=== PATIENT | female | born 1985 | race Caucasian/White ===

== ENCOUNTER 2016-07-09 20:01 | Emergency (ER) | payer OTHER ==
[~2016-07-09] VITALS: Ht 142.2 cm; Wt 47.2 kg
[~2016-07-09 20:01] MED LIST: TRAM50TA PO
[2016-07-09 20:04] VITALS: BP 99/77; PULSE 79; RESP 17; TEMP 98.4; O2SAT 100
[2016-07-09 20:24] LABS: BLOOD, URINE SMALL (NEG); GLUCOSE,URINE NEG (NEG); KETONE, URINE NEG (NEG); NITRITE,URINE NEG (NEG)
[2016-07-09 20:30] LABS: URINE COLOR YELLOW (YELLW/STRAW); WBC, URINE 0-2 /hpf (0-5)
[2016-07-09 20:31] LABS: BACTERIA, URINE OCC /hpf; COMMENT (UR) CULT NOT INDICATED; CULTURE IF INDICATED CULT NOT INDICATED; SQUAMOUS EPITHELIAL CELL URINE 0-5 /hpf (0-5)
[2016-07-09] MEDS ORDERED: SODIUM CHLOR 0.9% 1000 ML INJ 1,000 ML IV SCH (21:39)
[2016-07-09] MEDS ORDERED: SODIUM CHLORIDE 0.9% FLUSH 10 ML FLUSH IV FLUSH PRN (21:45)
[2016-07-09] MEDS ORDERED: ONDANSETRON HCL 4 MG/2 ML VIAL IVP ONE (21:45)
--- NOTE | 2016-07-09 21:45 | PD ---
HPI Chief Complaint: Abdominal Pain Time Seen by Provider: 21:39 Travel History International Travel<30 days: No Contact w/Intl Traveler<30days: No Traveled to known affect area: No History of Present Illness HPI The patient is a 31-year-old female that complains of pain in the abdomen, left upper quadrant mostly for 2-3 days. She does have nausea without vomiting. She denies any fever. She states there is no possibility of , she has an IUD in. She comes from [place] and speaks both Romanian and Kinyarwanda. She does have frequency of urination but denies any dysuria. PFSH Past Medical History Diminished Hearing: No Gastrointestinal Disorders: Yes Tetanus Vaccination: Unknown Influenza Vaccination: No ?: Unknown LMP: 06/13/16 : 2 Para: 2 Past Surgical History Section: Yes (x2) Social History Alcohol Use: No Tobacco Use: No Substance Use: No Allergies-Medications (Allergen,Severity, Reaction): Coded Allergies: No Known Allergies (Unverified , 07/09/16) Reported Meds & Prescriptions Reported Meds & Active Scripts Active No Active Prescriptions or Reported Medications Review of Systems Except as stated in HPI: all other systems reviewed are Neg Physical Exam Narrative GENERAL: The patient is alert, oriented 3 and slight apparent distress with her abdominal discomfort. Her vital signs are normal. SKIN: Focused skin assessment warm/dry. HEAD: Atraumatic. Normocephalic. EYES: Pupils equal and round. No scleral icterus. No injection or drainage. ENT: No nasal bleeding or discharge. Mucous membranes pink and moist. NECK: Trachea midline. No JVD. CARDIOVASCULAR: Regular rate and rhythm. No murmur appreciated. RESPIRATORY: No accessory muscle use. Clear to auscultation. Breath sounds equal bilaterally. GASTROINTESTINAL: Abdomen soft, with tenderness in the left upper quadrant or left leg to direct palpation. The patient also has some diffuse tenderness on other parts of her abdomen. No guarding or rebound is present. The abdomen is nondistended. Hepatic and splenic margins not palpable. MUSCULOSKELETAL: No obvious deformities. No clubbing. No cyanosis. No edema. NEUROLOGICAL: Awake and alert. No obvious cranial nerve deficits. Motor grossly within normal limits. Normal speech. PSYCHIATRIC: Appropriate mood and affect; insight and judgment normal. Data Data Last Documented VS Vital Signs Date Time Temp Pulse Resp B/P Pulse Ox O2 Delivery O2 Flow Rate FiO2 07/09/16 22:06 74 20 104/63 100 07/09/16 20:04 98.4 Orders Urinalysis - C+S If Indicated (07/09/16 20:09) Ed Urine Pregnancytest Poc (07/09/16 20:09) Complete Blood Count With Diff (07/09/16 21:39) Comprehensive Metabolic Panel (07/09/16 21:39) Lipase (07/09/16 21:39) Ct Abd/Pel W Iv Contrast(Rout) (07/09/16 21:39) Iv Access Insert/Monitor (07/09/16 21:39) Ecg Monitoring (07/09/16 21:39) Oximetry (07/09/16 21:39) Ondansetron Inj (Zofran Inj) (07/09/16 21:45) Sodium Chlor 0.9% 1000 Ml Inj (Ns 1000 M (07/09/16 21:39) Sodium Chloride 0.9% Flush (Ns Flush) (07/09/16 21:45) Ketorolac Inj (Toradol Inj) (07/09/16 23:00) Iohexol 350 Inj (Omnipaque 350 Inj) (07/09/16 23:07) Labs Laboratory Tests Test 07/09/16 07/09/16 20:10 22:00 Urine Color YELLOW Urine Turbidity CLEAR Urine pH 6.0 Urine Specific [place] 1.020 Urine Protein NEG mg/dL Urine Glucose (UA) NEG mg/dL Urine Ketones NEG mg/dL Urine Occult Blood SMALL Urine Nitrite NEG Urine Bilirubin NEG Urine Leukocyte Esterase NEG Urine RBC 10-14 /hpf Urine WBC 0-2 /hpf Urine Squamous Epithelial 0-5 /hpf Cells Urine Bacteria OCC /hpf Microscopic Urinalysis Comment CULT NOT INDICATED White Blood Count 6.8 TH/MM3 Red Blood Count 4.14 MIL/MM3 Hemoglobin 12.7 GM/DL Hematocrit 36.6 % Mean Corpuscular Volume 88.4 FL Mean Corpuscular Hemoglobin 30.8 PG Mean Corpuscular Hemoglobin 34.8 % Concent Red Cell Distribution Width 11.7 % Platelet Count 263 TH/MM3 Mean Platelet Volume 7.5 FL Neutrophils (%) (Auto) 45.4 % Lymphocytes (%) (Auto) 41.5 % Monocytes (%) (Auto) 8.6 % Eosinophils (%) (Auto) 3.7 % Basophils (%) (Auto) 0.8 % Neutrophils # (Auto) 3.0 TH/MM3 Lymphocytes # (Auto) 2.8 TH/MM3 Monocytes # (Auto) 0.6 TH/MM3 Eosinophils # (Auto) 0.3 TH/MM3 Basophils # (Auto) 0.1 TH/MM3 CBC Comment DIFF FINAL Differential Comment Sodium Level 139 MEQ/L Potassium Level 3.6 MEQ/L Chloride Level 104 MEQ/L Carbon Dioxide Level 27.9 MEQ/L Anion Gap 7 MEQ/L Blood Urea Nitrogen 10 MG/DL Creatinine 0.65 MG/DL Estimat Glomerular Filtration 107 ML/MIN Rate Random Glucose 88 MG/DL Calcium Level 8.6 MG/DL Total Bilirubin 0.2 MG/DL Aspartate Amino Transf 16 U/L (AST/SGOT) Alanine Aminotransferase 26 U/L (ALT/SGPT) Alkaline Phosphatase 41 U/L Total Protein 7.4 GM/DL Albumin 3.9 GM/DL Lipase 86 U/L MDM Medical Decision Making Medical Screen Exam Complete: Yes Emergency Medical Condition: Yes Medical Record Reviewed: Yes Interpretation(s) The urine shows small occult blood, 10-14 red cells with occasional bacteria but is otherwise normal and culture is not indicated. The urine test is negative. The CBC is normal and the complete metabolic profile is normal. The lipase is normal. The CT abdomen/pelvis with IV contrast shows a 2 cm right ovarian cyst and a 1.3 cm left ovarian cyst with a small amount of free fluid in the cul-de-sac. There is an IUD in the uterus but the exam is otherwise unremarkable. Differential Diagnosis Colitis, pancreatitis, pyelonephritis, enteritis, viral gastroenteritis, electrolyte disorder, appendicitis, urinary stone Narrative Course The patient may have a ruptured left ovarian cyst. She is slightly tender on the left. The blood work is completely normal. No evidence of ureteral stone is present. Plan: The patient be given Lortab 5 and Phenergan for pain and nausea. She should follow-up with her primary care physician. Diagnosis Primary Impression: Ruptured ovarian cyst Additional Instructions: Do not drink alcohol or drive on the Lortab 5 or the Phenergan. The Lortab 5 may cause nausea and that's why gave you Phenergan, for the nausea. I know you do not have any nausea now. Follow-up with a manager mining or your primary care physician next week. Med/Other Pt SpecificInfo: Prescription(s) given Scripts Promethazine (Phenergan)25 Mg Tab25 Mg PO Q6H PRN (Nausea/Vomiting) #20 TAB Ref 0 Prov:Girish Coronel MD 07/10/16 Hydrocodone-Acetaminophen (Lortab)5-325 Mg Tab1 Tab PO Q6H PRN (PAIN) #20 TAB Ref 0 Prov:Girish Coronel MD 07/10/16 Disposition: 01 DISCHARGE HOME Condition: Stable Girish Coronel MD July 09, 2016 21:45
[2016-07-09 22:06] VITALS: BP 104/63; PULSE 74; RESP 20; O2SAT 100
[2016-07-09 22:08] LABS: BASOPHIL # 0.1 TH/MM3 (0-0.2); BASOPHIL % 0.8 % (0.0-2.0); EOSINOPHIL # 0.3 TH/MM3 (0-0.4); EOSINOPHIL % 3.7 % (0.0-4.0); HEMATOCRIT 36.6 % (35.0-46.0); HEMO FLAGS DIFF FINAL; LYMPH % 41.5 % (9.0-44.0); LYMPHOCYTE # 2.8 TH/MM3 (1.0-4.8); MEAN CELL VOLUME 88.4 FL (80.0-100.0); MEAN CORPUSCULAR HEMOGLOBIN 30.8 PG (27.0-34.0); MEAN CORPUSCULAR HGB CONC 34.8 % (32.0-36.0); MONO % 8.6 % (0.0-8.0); NEUT % 45.4 % (16.0-70.0); PLATELET COUNT 263 TH/MM3 (150-450); RED BLOOD COUNT 4.14 MIL/MM3 (4.00-5.30); RED CELL DISTRIBUTION WIDTH 11.7 % (11.6-17.2); WHITE BLOOD COUNT 6.8 TH/MM3 (4.0-11.0)
[2016-07-09 22:24] LABS: CHLORIDE 104 MEQ/L (98-107); POTASSIUM 3.6 MEQ/L (3.5-5.1); SODIUM (NA) 139 MEQ/L (136-145)
[2016-07-09 22:28] LABS: ANION GAP 7 MEQ/L (5-15); BICARBONATE 27.9 MEQ/L (21.0-32.0); BLOOD UREA NITROGEN 10 MG/DL (7-18)
[2016-07-09 22:31] LABS: ALT (GPT) 26 U/L (10-53); AST (GOT) 16 U/L (15-37); GLOMERULAR FILTRATION RATE 107 ML/MIN (>89)
[2016-07-09 22:32] LABS: TOTAL BILIRUBIN ADULT 0.2 MG/DL (0.2-1.0)
[2016-07-09 22:34] LABS: ALKALINE PHOSPHATASE 41 U/L (45-117)
[2016-07-09] MEDS ORDERED: KETOROLAC TROMETHAMINE 60 MG/2 ML (IM) VIAL IVP ONE (23:00)
[2016-07-09] MEDS ORDERED: IOHEXOL 350 MG/ML 10 ML VIAL (for RAD DIAG) IV ONE (23:07)
--- NOTE | 2016-07-09 23:54 | RADHPO ---
EXAM DATE/TIME: 07/09/2016 22:53 [facility] COMPARISON: No previous studies available for comparison. INDICATIONS : Left lower quadrant pain. IV CONTRAST: 94 cc Omnipaque 350 (iohexol) IV ORAL CONTRAST: No oral contrast ingested. RADIATION DOSE: 4.53 CTDIvol (mGy) MEDICAL HISTORY : None SURGICAL HISTORY : section. ENCOUNTER: Initial ACUITY: 1 day PAIN SCALE: 6/10 LOCATION: Left lower quadrant TECHNIQUE: Volumetric scanning of the abdomen and pelvis was performed. Using automated exposure control and ad justment of the mA and/or kV according to patient size, radiation dose was kept as low as reasonably achievable to obtain optimal diagnostic quality images. FINDINGS: LOWER LUNGS: The visualized lower lungs are clear. LIVER: Homogeneous density without lesion. There is no dilation of the biliary tree. No calcified gallston es. SPLEEN: Normal size without lesion. PANCREAS: Within normal limits. KIDNEYS: Normal in size and shape. There is no mass, stone or hydronephrosis. ADRENAL GLANDS: Within normal limits. VASCULAR: There is no aortic aneurysm. BOWEL/MESENTERY: The stomach, small bowel, and colon demonstrate no acute abnormality. There is no free intraperitone al air or fluid. No inflammatory changes. There is stool in the colon.ABDOMINAL WALL: Within normal limits. RETROPERITONEUM: There is no lymphadenopathy. BLADDER: No wall thickening or mass. REPRODUCTIVE: There is an IUD within the uterus. There is a 2 cm left ovarian cyst. There is a 1.3 cm right ovarian cyst. There is a small amount of fluid in the cul-de-sac. INGUINAL: There is no lymphadenopathy or hernia. MUSCULOSKELETAL: Within normal limits for patient age. CONCLUSION: 1. There is a 2 cm right ovarian cyst. There is a 1.3 cm left ovarian cyst. There is a small amount o f free fluid in the cul-de-sac. 2. IUD in the uterus. 3. Otherwise, unremarkable exam for patient's age. Donato Berger MD on July 09, 2016 at 23:49 Board Certified Radiologist. This report was verified electronically.
[2016-07-10] MEDS ORDERED: HYDR-3533 PO (00:03)
[2016-07-10] MEDS ORDERED: PROM25TA5 PO (00:03)
[2016-07-10 00:18] VITALS: BP 109/63
== END 2016-07-10 00:20 | disposition home or self-care (01) ==
LOC: PHED 20:01 → MERGE 20:01 → PHED 07-10 00:20
DX: N83.11 Corpus luteum cyst of right ovary (principal); N83.12 Corpus luteum cyst of left ovary
CPT/HCPCS: 74177; 80053; 81001; 83690; 84703; 85025; 96374; 99284; J1885; J7030; Q9967

== ENCOUNTER 2016-10-21 15:34 | Emergency (ER) | payer OTHER ==
[~2016-10-21] VITALS: Ht 157.5 cm; Wt 50.0 kg
[~2016-10-21 15:34] MED LIST changes: +HYDR-3533 PO; +PROM25TA5 PO
[2016-10-21 15:40] VITALS: BP 96/84; PULSE 78; RESP 16; TEMP 98.2; O2SAT 100
[2016-10-21 16:00] VITALS: RESP 16; O2SAT 100
[2016-10-21] MEDS ORDERED: ASPIRIN 325 MG TAB PO ONE (16:00)
[2016-10-21] MEDS ORDERED: SODIUM CHLORIDE 0.9% FLUSH 10 ML FLUSH IVF PRN (16:00)
[2016-10-21] MEDS ORDERED: ASPI81CH CHEW (16:02)
[2016-10-21 16:07] LABS: AUTOMATED NEUTROPHIL # 2.6 TH/MM3 (1.8-7.7); BASOPHIL % 0.6 % (0.0-2.0); EOSINOPHIL # 0.1 TH/MM3 (0-0.4); EOSINOPHIL % 2.3 % (0.0-4.0); HEMATOCRIT 38.2 % (35.0-46.0); HEMO FLAGS DIFF FINAL; LYMPH % 46.5 % (9.0-44.0); LYMPHOCYTE # 2.8 TH/MM3 (1.0-4.8); MEAN CELL VOLUME 89.7 FL (80.0-100.0); MEAN CORPUSCULAR HEMOGLOBIN 30.3 PG (27.0-34.0); MEAN CORPUSCULAR HGB CONC 33.7 % (32.0-36.0); NEUT % 42.6 % (16.0-70.0); PLATELET COUNT 329 TH/MM3 (150-450); RED BLOOD COUNT 4.25 MIL/MM3 (4.00-5.30); RED CELL DISTRIBUTION WIDTH 12.1 % (11.6-17.2)
[2016-10-21 16:16] LABS: CHLORIDE 101 MEQ/L (98-107); POTASSIUM 3.7 MEQ/L (3.5-5.1); SODIUM (NA) 135 MEQ/L (136-145)
[2016-10-21 16:18] LABS: ANION GAP 8 MEQ/L (5-15); BICARBONATE 25.6 MEQ/L (21.0-32.0)
[2016-10-21 16:19] LABS: BLOOD UREA NITROGEN 15 MG/DL (7-18); MAGNESIUM 2.4 MG/DL (1.5-2.5)
[2016-10-21 16:22] LABS: GLOMERULAR FILTRATION RATE 120 ML/MIN (>89)
[2016-10-21 16:25] LABS: CREATINE KINASE 497 U/L (26-192)
--- NOTE | 2016-10-21 16:26 | PD ---
HPI Chief Complaint: Chest Pain Time Seen by Provider: 15:48 Travel History International Travel<30 days: No Contact w/Intl Traveler<30days: No Traveled to known affect area: No History of Present Illness HPI The patient is 31 years old. She speaks Faroese however prefers to speak Upper Sorbian or to have the undersigned provide broken translation. A patella cover marker service was offered however declined. She complains of chest pain for 2 days. Onset at rest. Location left chest. It's worse while the patient runs. There is paresthesias in the left arm. Paresthesias accompany the chest pain and at times persist after its resolution. She denies history of DVT. She has no family history of coronary artery disease. She does not smoke or use any drugs. She has no diabetes hyperlipidemia or hypertension. PFSH Past Medical History Diminished Hearing: No Gastrointestinal Disorders: Yes (GASTROPARESIS) Influenza Vaccination: No ?: Not LMP: IUD : 2 Para: 2 Past Surgical History Section: Yes (x2) Gynecologic Surgery: Yes (EXPLORATORY LAP. 2 C-SECT) Other Surgery: Yes (BREAST IMPLANTS) Social History Alcohol Use: No Tobacco Use: No Substance Use: No Allergies-Medications (Allergen,Severity, Reaction): Coded Allergies: No Known Allergies (Unverified , 10/21/16) Reported Meds & Prescriptions Reported Meds & Active Scripts Active Reported Aspirin 81 Mg Chew 81 Mg CHEW ONCE Physical Exam Narrative GENERAL: 31-year-old female pleasant well-nourished well-developed no acute distress SKIN: Focused skin assessment warm/dry. HEAD: Atraumatic. Normocephalic. EYES: Pupils equal and round. No scleral icterus. No injection or drainage. ENT: No nasal bleeding or discharge. Mucous membranes pink and moist. NECK: Trachea midline. No JVD. CARDIOVASCULAR: Regular rate and rhythm. No murmur appreciated. RESPIRATORY: No accessory muscle use. Clear to auscultation. Breath sounds equal bilaterally. GASTROINTESTINAL: Abdomen soft, non-tender, nondistended. Hepatic and splenic margins not palpable. MUSCULOSKELETAL: No obvious deformities. No clubbing. No cyanosis. No edema. No sign DVT. NEUROLOGICAL: Awake and alert. No obvious cranial nerve deficits. Motor grossly within normal limits. Normal speech. PSYCHIATRIC: Appropriate mood and affect; insight and judgment normal. Data Data Last Documented VS Vital Signs Date Time Temp Pulse Resp B/P (MAP) Pulse Ox O2 Delivery O2 Flow Rate FiO2 10/21/16 17:33 10/21/16 17:27 81 16 99 Room Air 10/21/16 15:40 98.2 Vital signs reviewed Orders Orders Electrocardiogram (10/21/16 15:49) Basic Metabolic Panel (Bmp) (10/21/16 15:49) Ckmb (Isoenzyme) Profile (10/21/16 15:49) Complete Blood Count With Diff (10/21/16 15:49) D-Dimer (10/21/16 15:49) Magnesium (Mg) (10/21/16 15:49) Troponin I (10/21/16 15:49) Chest, Single Ap (10/21/16 15:49) Ecg Monitoring (10/21/16 15:49) Iv Access Insert/Monitor (10/21/16 15:49) Oximetry (10/21/16 15:49) Oxygen Administration (10/21/16 15:49) Aspirin (Aspirin) (10/21/16 16:00) Sodium Chloride 0.9% Flush (Ns Flush) (10/21/16 16:00) CKMB (10/21/16 15:55) CKMB% (10/21/16 15:55) Labs Laboratory Tests Test 10/21/16 15:55 White Blood Count 6.0 TH/MM3 Red Blood Count 4.25 MIL/MM3 Hemoglobin 12.9 GM/DL Hematocrit 38.2 % Mean Corpuscular Volume 89.7 FL Mean Corpuscular Hemoglobin 30.3 PG Mean Corpuscular Hemoglobin Concent 33.7 % Red Cell Distribution Width 12.1 % Platelet Count 329 TH/MM3 Mean Platelet Volume 7.6 FL Neutrophils (%) (Auto) 42.6 % Lymphocytes (%) (Auto) 46.5 % Monocytes (%) (Auto) 8.0 % Eosinophils (%) (Auto) 2.3 % Basophils (%) (Auto) 0.6 % Neutrophils # (Auto) 2.6 TH/MM3 Lymphocytes # (Auto) 2.8 TH/MM3 Monocytes # (Auto) 0.5 TH/MM3 Eosinophils # (Auto) 0.1 TH/MM3 Basophils # (Auto) 0.0 TH/MM3 CBC Comment DIFF FINAL Differential Comment D-Dimer Quantitative (PE/DVT) LESS THAN 0.19 MG/L FEU Blood Urea Nitrogen 15 MG/DL Creatinine 0.59 MG/DL Random Glucose 87 MG/DL Calcium Level 9.4 MG/DL Magnesium Level 2.4 MG/DL Sodium Level 135 MEQ/L Potassium Level 3.7 MEQ/L Chloride Level 101 MEQ/L Carbon Dioxide Level 25.6 MEQ/L Anion Gap 8 MEQ/L Estimat Glomerular Filtration Rate 120 ML/MIN Total Creatine Kinase 497 U/L Creatine Kinase MB 2.8 NG/ML Creatine Kinase MB % 0.6 % Troponin I LESS THAN 0.02 NG/ML MDM Medical Decision Making Medical Screen Exam Complete: Yes Emergency Medical Condition: Yes Medical Record Reviewed: Yes Differential Diagnosis NSTEMI, unstable angina, coronary vasospasm, PE, PTX, aortic dissection, pericarditis, myocarditis, endocarditis, PNA, esophageal disease, aneurysm, musculoskeletal etiologies, anxiety, cocaine/sympathomimetic abuse Narrative Course EKG reveals a sinus rhythm rate 85 normal axis intervals CBC & BMP Diagram 10/21/16 15:55 Calcium Level 9.4, Magnesium Level 2.4 Chest x-ray normal D-dimer less than 0.12 The patient is resting comfortably and feels better, is alert and in no distress. The patients results and examination findings were discussed. The repeat examination is unremarkable and benign. The history, exam, diagnostic testing, and current condition do not suggest any significant pathology to warrant further testing, continued ED treatment, admission, or surgical evaluation at this point. The vital signs have been stable. The patient does not have uncontrollable pain, intractable vomiting, or other significant symptoms. The patient's condition is stable and appropriate for discharge. The patient will pursue further outpatient evaluation with a primary care physician or other designated or consulting physician as indicated in the discharge instructions. The patient expressed understanding and was agreeable with this plan. Diagnosis Primary Impression: Chest pain Qualified Codes: R07.9 - Chest pain, unspecified Admitting Information Admitting Physician Requests: Observation Referrals: Shlomo Pillai MD call for appointment Additional Instructions: You have a choice when it comes to health care, and we are glad that you chose [facility]. Hopefully, we have met your expectations on today's visit. You are welcome to return to [facility] at any time, as we are committed to meeting the health care needs of our community. Med/Other Pt SpecificInfo: No Change to Meds Disposition: 01 DISCHARGE HOME Condition: Stable Cricket Vidal MD Oct 21, 2016 16:26
[2016-10-21 16:28] VITALS: BP 109/67; PULSE 82; RESP 16; O2SAT 99
--- NOTE | 2016-10-21 16:31 | RADRPT ---
EXAM DATE/TIME: 10/21/2016 16:02 [facility] COMPARISON: CT ABDOMEN & PELVIS W CONTRAST, July 09, 2016, 22:53. INDICATIONS : Chest pain. MEDICAL HISTORY : None. SURGICAL HISTORY : section. ENCOUNTER: Initial ACUITY: 1 day PAIN SCORE: 5/10 LOCATION: Bilateral chest FINDINGS: A single view of the chest demonstrates the lungs to be symmetrically aerated without evidence of mas s, infiltrate or effusion. The cardiomediastinal contours are unremarkable. Osseous structures are intact. CONCLUSION: Normal examination. Harjeet Nina MD on October 21, 2016 at 16:29 Board Certified Radiologist. This report was verified electronically.
[2016-10-21 16:37] LABS: CKMB 2.8 NG/ML (0.5-3.6)
[2016-10-21 17:27] VITALS: BP 106/87; PULSE 81; RESP 16; O2SAT 99
--- NOTE | 2016-10-22 08:33 | EKG ---
Date Performed: 10/21/2016 Time Performed: 15:44:26 PTAGE: 31 years EKG: Sinus rhythm NORMAL ECG NO PREVIOUS TRACING DOCTOR: Shlomo Pillai Interpretating Date/Time 10/22/2016 08:31:15
== END 2016-10-21 17:34 | disposition home or self-care (01) ==
LOC: PHED 15:34
DX: R07.9 Chest pain, unspecified (principal)
CPT/HCPCS: 71010; 80048; 82550; 82552; 83735; 84484; 85025; 85379; 93005; 99285

== ENCOUNTER 2016-10-26 21:17 | Emergency (ER) | payer OTHER ==
[~2016-10-26] VITALS: Ht 142.2 cm; Wt 45.0 kg
[~2016-10-26 21:17] MED LIST changes: +ASPI81CH CHEW; -HYDR-3533 PO; -PROM25TA5 PO; -TRAM50TA PO
[2016-10-26 21:19] VITALS: BP 122/69; PULSE 68; RESP 16; TEMP 97.9; O2SAT 100
[2016-10-26 22:28] LABS: AUTOMATED NEUTROPHIL # 1.9 TH/MM3 (1.8-7.7); BASOPHIL # 0.1 TH/MM3 (0-0.2); BASOPHIL % 1.1 % (0.0-2.0); EOSINOPHIL # 0.3 TH/MM3 (0-0.4); HEMATOCRIT 37.2 % (35.0-46.0); LYMPH % 66.2 % (9.0-44.0); LYMPHOCYTE # 5.7 TH/MM3 (1.0-4.8); MEAN CELL VOLUME 89.5 FL (80.0-100.0); MEAN CORPUSCULAR HEMOGLOBIN 31.3 PG (27.0-34.0); MONO % 8.2 % (0.0-8.0); NEUT % 21.5 % (16.0-70.0); PLATELET COUNT 314 TH/MM3 (150-450); RED BLOOD COUNT 4.16 MIL/MM3 (4.00-5.30); WHITE BLOOD COUNT 8.6 TH/MM3 (4.0-11.0)
[2016-10-26 22:35] LABS: HEMO FLAGS AUTO DIFF
[2016-10-26 22:59] LABS: ANION GAP 6 MEQ/L (5-15); BICARBONATE 24.8 MEQ/L (21.0-32.0); BLOOD UREA NITROGEN 15 MG/DL (7-18); CHLORIDE 106 MEQ/L (98-107); GLOMERULAR FILTRATION RATE 82 ML/MIN (>89); POTASSIUM 3.8 MEQ/L (3.5-5.1); SODIUM (NA) 137 MEQ/L (136-145)
[2016-10-26 23:12] LABS: EOSINOPHILS 3 % (0-4); NEUTROPHIL # MANUAL DIFF 1.9 TH/MM3 (1.8-7.7); POLYS (SEG NEUTROPHILS) 22 % (16-70); SCAN/DIFF FINAL DIFF MANUAL; WBC DIFF SAMPLE 100
[2016-10-26 23:13] LABS: PLATELET ESTIMATE SMEAR NORMAL (NORMAL); PLATELET MORPHOLOGY NORMAL (NORMAL)
[2016-10-26 23:17] LABS: CREATINE KINASE 61 U/L (26-192)
[2016-10-26] MEDS ORDERED: PRED5PAK PO (23:20)
--- NOTE | 2016-10-26 23:24 | RADRPT ---
EXAM DATE/TIME: 10/26/2016 22:37 [facility] COMPARISON: No previous studies available for comparison. INDICATIONS : Chest pain. MEDICAL HISTORY : Gastroparesis. SURGICAL HISTORY : section. Breast implants. ENCOUNTER: Initial ACUITY: 1 day PAIN SCORE: 10/10 LOCATION: Bilateral chest FINDINGS: PA and lateral views of the chest demonstrate the lungs to be symmetrically aerated without evidence of mass, infiltrate or effusion. The cardiomediastinal contours are unremarkable. Osseous structure s are intact. CONCLUSION: No acute disease. Jonathan Mitchell MD on October 26, 2016 at 23:22 Board Certified Radiologist. This report was verified electronically.
[2016-10-26] MEDS ORDERED: DIAZEPAM 5 MG TAB PO ONE (23:45)
--- NOTE | 2016-10-26 23:45 | PD ---
HPI Chief Complaint: Chest Pain Time Seen by Provider: 23:18 Travel History International Travel<30 days: No Contact w/Intl Traveler<30days: No Traveled to known affect area: No History of Present Illness HPI 31yo F with no significant PMH presents to the ED with c/o chest pain since Wednesday. Chest pain is sharp, in bilateral chest, worst with palpation and radiates to left scapula. Pain is worst with movement. Denies any fever, cough , recent cold, sob, n/v, abdominal pain, focal weakness, recent fall, recent strenuous exercise. States she has been taking ibuprofen but it does not work. Pt was seen for similar chest pain on 10/21/16 with negative work up. PFSH Past Medical History Diminished Hearing: No Gastrointestinal Disorders: Yes (GASTROPARESIS) ?: Not : 2 Para: 2 Past Surgical History Section: Yes (x2) Gynecologic Surgery: Yes (EXPLORATORY LAP. 2 C-SECT) Other Surgery: Yes (BREAST IMPLANTS) Social History Alcohol Use: No Tobacco Use: No Substance Use: No Allergies-Medications (Allergen,Severity, Reaction): Coded Allergies: No Known Allergies (Unverified , 10/26/16) Reported Meds & Prescriptions Reported Meds & Active Scripts Active Reported Prednisone (21) 5 mg tab Dose Pack (Prednisone) 5 Mg Dspk 4 Mg PO DIRECTED Aspirin 81 Mg Chew 81 Mg CHEW ONCE Review of Systems Except as stated in HPI: all other systems reviewed are Neg Physical Exam Narrative GENERAL: 31yo F in mild distress. SKIN: Focused skin assessment warm/dry. HEAD: Atraumatic. Normocephalic. EYES: Pupils equal and round. No scleral icterus. No injection or drainage. CARDIOVASCULAR: Regular rate and rhythm. No murmur appreciated. RESPIRATORY: No accessory muscle use. Clear to auscultation. Breath sounds equal bilaterally. CHEST WALL: +TTP bilateral chest wall. No rash. GASTROINTESTINAL: Abdomen soft, non-tender, nondistended. No rebound tenderness or guarding. MUSCULOSKELETAL: +TTP medial scapula. No obvious deformities. No clubbing. No cyanosis. No edema. NEUROLOGICAL: Awake and alert. No obvious cranial nerve deficits. Motor grossly within normal limits. Normal speech. PSYCHIATRIC: Appropriate mood and affect; insight and judgment normal. Data Data Last Documented VS Vital Signs Date Time Temp Pulse Resp B/P (MAP) Pulse Ox O2 Delivery O2 Flow Rate FiO2 10/26/16 23:16 70 18 99 Room Air 10/26/16 21:19 97.9 122/69 (86) Orders Orders Electrocardiogram (10/26/16 21:38) Complete Blood Count With Diff (10/26/16 21:38) Basic Metabolic Panel (Bmp) (10/26/16 21:38) Ckmb (Isoenzyme) Profile (10/26/16 21:38) Troponin I (10/26/16 21:38) Chest, Pa & Lat (10/26/16 21:38) Diazepam (Valium) (10/26/16 23:45) Labs Laboratory Tests Test 10/26/16 21:54 White Blood Count 8.6 TH/MM3 Red Blood Count 4.16 MIL/MM3 Hemoglobin 13.0 GM/DL Hematocrit 37.2 % Mean Corpuscular Volume 89.5 FL Mean Corpuscular Hemoglobin 31.3 PG Mean Corpuscular Hemoglobin Concent 35.0 % Red Cell Distribution Width 13.0 % Platelet Count 314 TH/MM3 Mean Platelet Volume 7.8 FL Neutrophils (%) (Auto) 21.5 % Lymphocytes (%) (Auto) 66.2 % Monocytes (%) (Auto) 8.2 % Eosinophils (%) (Auto) 3.0 % Basophils (%) (Auto) 1.1 % Neutrophils # (Auto) 1.9 TH/MM3 Lymphocytes # (Auto) 5.7 TH/MM3 Monocytes # (Auto) 0.7 TH/MM3 Eosinophils # (Auto) 0.3 TH/MM3 Basophils # (Auto) 0.1 TH/MM3 CBC Comment AUTO DIFF Differential Total Cells Counted 100 Neutrophils % (Manual) 22 % Lymphocytes % 71 % Monocytes % 4 % Eosinophils % 3 % Neutrophils # (Manual) 1.9 TH/MM3 Differential Comment FINAL DIFF MANUAL Platelet Estimate NORMAL Platelet Morphology Comment NORMAL Red Cell Morphology Comment NORMAL Blood Urea Nitrogen 15 MG/DL Creatinine 0.82 MG/DL Random Glucose 89 MG/DL Calcium Level 8.7 MG/DL Sodium Level 137 MEQ/L Potassium Level 3.8 MEQ/L Chloride Level 106 MEQ/L Carbon Dioxide Level 24.8 MEQ/L Anion Gap 6 MEQ/L Estimat Glomerular Filtration Rate 82 ML/MIN Total Creatine Kinase 61 U/L Troponin I LESS THAN 0.02 NG/ML MDM Medical Decision Making Medical Screen Exam Complete: Yes Emergency Medical Condition: Yes Interpretation(s) EKG: NSR 76bpm. Normal axis. No ST segment elevation or depression. Differential Diagnosis Musculoskeletal pain vs. anxiety vs. atypical chest pain Narrative Course 31yo F with atypical chest pain. Seems very musculoskeletal in nature. Labs reviewed, no leukocytosis. Troponin negative. CXR negative. Pt given valium since she has been taking a lot of ibuprofen at home and it is not working. Pt reevaluated at bedside after valium and states pain has improved. Return precautions given. Diagnosis Primary Impression: Musculoskeletal pain Patient Instructions: General Instructions Departure Forms: Tests/Procedures Additional Instructions: Please follow up with your primary care physician in 1-2 days. Return to the ED if symptoms worsen. Med/Other Pt SpecificInfo: Prescription(s) given Scripts Acetaminophen (Tylenol) 325 Mg Tab 650 MG PO Q6H Y for PAIN SCALE 1 TO 4 for 5 Days, TAB 0 Refills Prov: Maureen Manning DO 10/27/16 Methocarbamol (Robaxin) 750 Mg Tab 750 MG PO BID for Muscle Spasm for 3 Days, TAB 0 Refills Prov: Maureen Manning DO 10/27/16 Disposition: 01 DISCHARGE HOME Condition: Stable Maureen Manning DO Oct 26, 2016 23:45
[2016-10-27] MEDS ORDERED: TYLE325T PO (01:47)
[2016-10-27] MEDS ORDERED: ROBA750T PO (01:47)
--- NOTE | 2016-10-27 09:14 | EKG ---
Date Performed: 10/26/2016 Time Performed: 21:51:42 PTAGE: 31 years EKG: Sinus rhythm WITH SINUS ARRHYTHMIA NORMAL ECG PREVIOUS TRACING : 10/21/2016 15.44 Compared to prior tracing no significant change DOCTOR: Adolfo Lindquist Interpretating Date/Time 10/27/2016 09:12:11
== END 2016-10-27 02:02 | disposition home or self-care (01) ==
LOC: NEPE 21:17
DX: M79.1 Myalgia (principal); K31.84 Gastroparesis
CPT/HCPCS: 71020; 80048; 82550; 84484; 85007; 85027; 93005; 99285